=== PATIENT | male | born 1985 | race African-American/Black ===

== ENCOUNTER → 2018-09-12 | Outpatient (CLI) | payer OTHER ==
--- NOTE | 2018-09-12 09:49 | RADIOLOGY REPORT (SQ) ---
EXAM DESCRIPTION: U/S LTD DUPLEX ART/RAJESH FLOW; U/S RETROPERITON (RENAL/AORTA) COMPLETED DATE/TIME: 09/12/2018 9:11 am REASON FOR STUDY: HTN (I10) COMPARISON: None. TECHNIQUE: Realtime and static grayscale images acquired. Selected color Doppler, velocities and spe ctral images recorded. LIMITATIONS: Difficult to obtain reliable Doppler tracings at the origins of the renal arteries off the aorta due to midline bowel gas FINDINGS: RIGHT KIDNEY: RENAL ARTERY VELOCITIES: At the hilum, 133 cm/sec. Segmental artery velocity 120 cm/sec. RENAL VEIN: Color doppler flow present, patent. VELOCITY RATIO: 0.8. Normal waveforms. KIDNEY: 11.3 cm in length with mild increased cortical echogenicity, normal cortical thickness. No cysts or masses. No hydronephrosis. LEFT KIDNEY: RENAL ARTERY VELOCITIES: At the hilum, 87 cm/sec. Segmental artery velocity 81 cm/sec. RENAL VEIN: Color doppler flow present, patent. VELOCITY RATIO: 0.5. Blunting of the systolic peak, left renal artery waveforms, question left proxim al renal artery stenosis. Correlation with CT angio or MR angio of the renal arteries is recommended . KIDNEY: 12 cm in length with mild increased cortical echogenicity with normal cortical thickness. No cysts or masses. No hydronephrosis. BLADDER: Not well seen, patient voided prior to the exam OTHER: No other significant finding. IMPRESSION: Decreased velocities in the left renal artery at the hilum and segmental arteries, with blunting of the systolic peak. Findings could indicate renal artery stenosis on the left. Correlation with CT angio or MR angio of the renal arteries is recommended Mild increased echogenicity of the renal cortex bilaterally, abnormal but nonspecific COMMENT: NORMAL RENAL ARTERY/AORTA VELOCITY RATIO IS LESS THAN OR EQUAL TO 3.5. TECHNICAL DOCUMENTATION: JOB ID: [id number] [employer]- All Rights Reserved Reading location - IP/workstation name: [email or web address]
--- NOTE | 2018-09-12 09:49 | RADIOLOGY REPORT (SQ) ---
EXAM DESCRIPTION: U/S LTD DUPLEX ART/RAJESH FLOW; U/S RETROPERITON (RENAL/AORTA) COMPLETED DATE/TIME: 09/12/2018 9:11 am REASON FOR STUDY: HTN (I10) COMPARISON: None. TECHNIQUE: Realtime and static grayscale images acquired. Selected color Doppler, velocities and spe ctral images recorded. LIMITATIONS: Difficult to obtain reliable Doppler tracings at the origins of the renal arteries off the aorta due to midline bowel gas FINDINGS: RIGHT KIDNEY: RENAL ARTERY VELOCITIES: At the hilum, 133 cm/sec. Segmental artery velocity 120 cm/sec. RENAL VEIN: Color doppler flow present, patent. VELOCITY RATIO: 0.8. Normal waveforms. KIDNEY: 11.3 cm in length with mild increased cortical echogenicity, normal cortical thickness. No cysts or masses. No hydronephrosis. LEFT KIDNEY: RENAL ARTERY VELOCITIES: At the hilum, 87 cm/sec. Segmental artery velocity 81 cm/sec. RENAL VEIN: Color doppler flow present, patent. VELOCITY RATIO: 0.5. Blunting of the systolic peak, left renal artery waveforms, question left proxim al renal artery stenosis. Correlation with CT angio or MR angio of the renal arteries is recommended . KIDNEY: 12 cm in length with mild increased cortical echogenicity with normal cortical thickness. No cysts or masses. No hydronephrosis. BLADDER: Not well seen, patient voided prior to the exam OTHER: No other significant finding. IMPRESSION: Decreased velocities in the left renal artery at the hilum and segmental arteries, with blunting of the systolic peak. Findings could indicate renal artery stenosis on the left. Correlation with CT angio or MR angio of the renal arteries is recommended Mild increased echogenicity of the renal cortex bilaterally, abnormal but nonspecific COMMENT: NORMAL RENAL ARTERY/AORTA VELOCITY RATIO IS LESS THAN OR EQUAL TO 3.5. TECHNICAL DOCUMENTATION: JOB ID: [id number] [employer]- All Rights Reserved Reading location - IP/workstation name: [email or web address]
== END ==
LOC: RAD 08:23
PROVIDERS: ATTEND General Practice
DX: I70.1 Atherosclerosis of renal artery (principal)
CPT/HCPCS: 76770; 93976